=== PATIENT | male | born 1970 | race Two or more races ===

== ENCOUNTER 2020-03-13 17:11 | Emergency (ER) | payer OTHER ==
--- NOTE | 2020-03-13 18:03 | ED Physician Documentation ---
PD HPI LOWER EXT INJURY - Stated complaint Stated Complaint: RT FOOT INJURY - Chief complaint Chief Complaint: Trauma Ext - History obtained from History obtained from: Patient - History of Present Illness PD HPI LOW EXT INJURY LOCATION: Right, Toe Type of injury: Blunt / blow Where injury occurred: Home Timing - onset: How many hours ago (2) - Additional information Additional information: 49-year-old male comes to the emergency department with acute right toe pain. Patient reports that he was walking barefoot in his home and accidentally stubbed his right foot on the wooden peg of his couch.No deformity of the toe. But acutely painful at the base of the fourth and fifth phalanx. No history of previous injury. PD PAST MEDICAL HISTORY - Past Medical History Past Medical History: No Cardiovascular: None Respiratory: None Neuro: None Endocrine/Autoimmune: None GI: None : None HEENT: None Psych: None Musculoskeletal: None Derm: None - Past Surgical History Past Surgical History: No - Allergies Allergies/Adverse Reactions: Allergies Allergy/AdvReac Type Severity Reaction Status Date / Time No Known Drug Allergies Allergy Verified 03/13/20 17:15 - Social History Does the pt smoke?: No Smoking Status: Never smoker Does the pt drink ETOH?: No Does the pt have substance abuse?: No - Immunizations Immunizations are current?: Yes PD ED PE NORMAL - General General: Alert and oriented X 3, No acute distress - Cardiac Cardiac: RRR, No murmur - Respiratory Respiratory: No respiratory distress - Extremities Extremities: No deformity, Other (Tenderness at the base of the proximal fourth and fifth phalanx. No deformity. Bears nearly full weight on the right foot. 2+ DP pulse) Results - Vitals Vitals: Vital Signs - 24 hr 03/13/20 17:15 Heart Rate 68 Respiratory 16 Rate Blood Pressure 126/86 H O2 Saturation 97 Oxygen O2 Source Room air - Rads (name of study) right foot Radiology: Final report received PD MEDICAL DECISION MAKING - ED course Complexity details: reviewed results, re-evaluated patient, d/w patient ED course: 49-year-old male comes to the ED with acute right lateral foot pain after stubbing his foot on the couch this afternoon. X-ray shows a nondisplaced fracture at the distal phalanx of the right fifth digit. Patient's foot is mingo taped he will be referred to orthopedics. Departure - Departure Disposition: 01 Home, Self Care Clinical Impression: Toe fracture, right Qualifiers: Encounter type: initial encounter Toe: lesser toe Fracture type: closed Phalanx: distal Fracture alignment: nondisplaced Qualified Code(s): S92.534A - Nondisplaced fracture of distal phalanx of right lesser toe(s), initial encounter for closed fracture Condition: Stable Instructions: ED Fx Toe Closed Follow-Up: [facility] [Provider Group] Comments: Your small toe is fractured. Please continue to mingo tape your toes as shown. Wear the splint provided. Typically there is no surgical treatment for this type of fracture. Taking ibuprofen or Tylenol for pain and icing the foot will be helpful. I have made a referral for you long-term to the orthopedic doctors.
--- NOTE | 2020-03-13 18:48 | XRAY Report ---
PROCEDURE: Foot 2 View RT INDICATIONS: S/P Blunt force trauma to right foot, 5th digit, P TECHNIQUE: 2 views of the foot were acquired. COMPARISON: None. FINDINGS: BB marker adjacent to the fifth digit interphalangeal joint. Bones: Cortical step-off at the articular surface of the distal phalanx of the fifth digit. No disloc ation. No suspicious bony lesions. Soft tissues: No tibiotalar joint effusion. Achilles tendon appears normal. IMPRESSION: Nondisplaced fracture at the articular surface of the distal phalanx of the fifth digit. Reviewed by: Sheldon Herman MD on 03/13/2020 6:47 PM PDT Approved by: Sheldon Herman MD on 03/13/2020 6:47 PM PDT Station ID: [id number]
[2020-03-13 19:28] VITALS: BP 129/87
== END 2020-03-13 19:36 | disposition home or self-care (01) ==
LOC: ED 17:11
DX: S92.534A Nondisplaced fracture of distal phalanx of right lesser toe(s), initial encounter for closed fracture (principal); W22.03XA Walked into furniture, initial encounter; Y93.01 Activity, walking, marching and hiking; Y92.009 Unspecified place in unspecified non-institutional (private) residence as the place of occurrence of the external cause
CPT/HCPCS: 99281; 99283

== ENCOUNTER 2021-09-28 20:22 | Emergency (ER) | payer BC, OTHER ==
[2021-09-28] MEDS ORDERED: HYDROcod/ACET 5/325 Prepack 4 PO STA (20:35)
[2021-09-28 20:37] VITALS: BP 131/76
--- NOTE | 2021-09-28 20:37 | ED Physician Documentation ---
History of Present Illness - Stated complaint Stated Complaint: FEVER/BODY ACHES/NAUSEA/CONGESTION/HEADACHE - Chief complaint Chief Complaint: General - History obtained from History obtained from: Patient - Additonal information Additional information: Otherwise healthy 51-year-old gentleman who has been vaccinated against COVID but not boosted got sick yesterday with severe body aches, fever, joint aches, mild cough and sore throat. 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 Review of Systems Constitutional: reports: Fever, Chills, Myalgias, Fatigue Nose: reports: Rhinorrhea / runny nose (v mild) Throat: reports: Sore throat Respiratory: reports: Cough. denies: Dyspnea PD PAST MEDICAL HISTORY - Past Medical History Cardiovascular: None Respiratory: None Neuro: None Endocrine/Autoimmune: None GI: None : None HEENT: None Psych: None Musculoskeletal: None Derm: None - Past Surgical History Past Surgical History: No - Present Medications Home Medications: Ambulatory Orders Medication Instructions Recorded Confirmed HYDROcod/ACETAM 5/325 [[place] 5/325] 1 - 2 tab PO Q6H PRN #15 tablet 09/28/21 Ibuprofen [Motrin] 800 mg PO Q8H PRN #20 tablet 09/28/21 - Allergies Allergies/Adverse Reactions: Allergies Allergy/AdvReac Type Severity Reaction Status Date / Time No Known Drug Allergies Allergy Verified 09/28/21 20:37 - Social History Does the pt smoke?: No Smoking Status: Never smoker Does the pt drink ETOH?: No Does the pt have substance abuse?: No - Immunizations Immunizations are current?: Yes PD ED PE NORMAL - Vitals Vital signs reviewed: Yes (Tachycardic and febrile) - General General: Alert and oriented X 3, No acute distress, Well developed/nourished - HEENT HEENT: Pharynx benign - Neck Neck: Supple, no meningeal sign, No bony TTP - Cardiac Cardiac: RRR, No murmur - Respiratory Respiratory: No respiratory distress, Clear bilaterally - Abdomen Abdomen: Non tender - Neuro Neuro: Alert and oriented X 3, Normal speech Results - Vitals Vitals: Vital Signs - 24 hr 09/28/21 20:25 Temperature 38.7 C H Heart Rate 125 H Respiratory 16 Rate Blood Pressure 131/76 H O2 Saturation 97 Oxygen O2 Source Room air PD MEDICAL DECISION MAKING - ED course ED course: 51-year-old gentleman with kind of a classic viral syndrome. High suspicion for COVID given the current outbreak. He is tested for same and treated symptomatically. Departure - Departure Disposition: 01 Home, Self Care Clinical Impression: Viral syndrome Condition: Good Record reviewed to determine appropriate education?: Yes Instructions: ED Viral Syndrome Prescriptions: Ibuprofen [Motrin] 800 mg PO Q8H PRN #20 tablet PRN Reason: PAIN &/OR FEVER HYDROcod/ACETAM 5/325 [[place] 5/325] 1 - 2 tab PO Q6H PRN #15 tablet PRN Reason: Pain Comments: I sent your prescription electronically to [facility] in [place]. Drink plenty of fluids. You have a Covid test pending. You need to self quarantine until the result is done and negative. Do not leave your house. Do not get near anybody. The results should be done in 48 to 72 hours. We will call with a positive result, the fastest way to get a negative result for confirmation though is to go to the hospital website at [email or web address], click on the my [facility] tab and sign up for the patient portal. If any friends or family get sick and would like to have a Covid test done, but do not have signs or symptoms that would necessitate being hospitalized, there are multiple local options for Covid testing. [facility] keeps an updated list of testing and vaccination options at: [email or web address].
== END 2021-09-28 20:45 | disposition home or self-care (01) ==
LOC: ED 20:22
DX: B34.9 Viral infection, unspecified (principal); Z20.822 Contact with and (suspected) exposure to COVID-19
CPT/HCPCS: 99282; 99283

== ENCOUNTER 2023-03-08 02:25 | Emergency (ER) | payer BC ==
[2023-03-08 02:52] VITALS: BP 121/81
[2023-03-08 03:23] LABS: BASOPHILS # (AUTO) 0.1 10^3/uL (0.0-0.1); BASOPHILS % (AUTO) 1.6 %; EOSINOPHILS # (AUTO) 0.7 10^3/uL (0.0-0.7); EOSINOPHILS % (AUTO) 8.4 %; HCT - HEMATOCRIT 43.3 % (42.0-52.0); HGB - HEMOGLOBIN 14.6 g/dL (14.0-18.0); LYMPHOCYTES # (AUTO) 3.8 10^3/uL (1.5-3.5); LYMPHOCYTES % (AUTO) 48.2 %; MEAN CORPUSCULAR HGB CONC 33.7 g/dL (32.0-36.0); MEAN PLATELET VOLUME 10.3 fL (7.4-11.4); MONOCYTES # (AUTO) 0.4 10^3/uL (0.0-1.0); MONOCYTES % (AUTO) 5.4 %; NEUTROPHILS # (AUTO) 2.9 10^3/uL (1.5-6.6); NEUTROPHILS % (AUTO) 36.1 %; PLT - PLATELET COUNT 214 10^3/uL (130-450); RED BLOOD COUNT 4.42 10^6/uL (4.70-6.10); RED CELL DISTRIBUTION WIDTH 11.9 % (12.0-15.0); WHITE BLOOD COUNT 7.9 x10^3/uL (4.8-10.8)
[2023-03-08 03:29] LABS: RAPID STREP SCREEN Negative (Negative)
[2023-03-08 03:36] LABS: ALBUMIN 3.9 g/dL (3.2-5.5); ALBUMIN/GLOBULIN RATIO 1.3 (1.0-2.2); BILIRUBIN,TOTAL 0.4 mg/dL (0.2-1.0); CALCIUM 8.7 mg/dL (8.5-10.3); POTASSIUM 4.1 mmol/L (3.5-5.0)
--- NOTE | 2023-03-08 03:42 | ED Physician Documentation ---
PD HPI DYSPNEA - Stated complaint Stated Complaint: SOA - Chief complaint Chief Complaint: Resp - History obtained from History obtained from: Patient - Additional information Additional information: Patient is a 52-year-old male with no significant past medical history presenting for evaluation of feeling short of breath that woke him up from his sleep AAt 1:40 AM. Patient reports yesterday feeling like he was coming down with virus. Patient reports feeling fatigued as well as having a sore throat. He reported no fever, no cough, no chest pain. He reports having good p.o. intake. Overnight he woke up feeling as if he was having a hard time getting a full breath in which appears to be better now. He denies a history of PE or DVT, recent travel or immobilization, leg swelling or pain.No hemoptysis.He is unsure of any sick contacts.He again denies having any chest pain or discomfort.He says his symptoms are not worse with exertion. He says that his symptoms feel worse if he is laying back. Review of Systems Constitutional: denies: Fever Cardiac: denies: Chest pain / pressure Respiratory: reports: Dyspnea GI: denies: Abdominal Pain Neurologic: denies: Headache PD PAST MEDICAL HISTORY - Past Medical History Cardiovascular: None Respiratory: None Neuro: None Endocrine/Autoimmune: None GI: None : None HEENT: None Psych: None Musculoskeletal: None Derm: None - Past Surgical History Past Surgical History: No - Present Medications Home Medications: Ambulatory Orders Medication Instructions Recorded Confirmed HYDROcod/ACETAM 5/325 [[place] 5/325] 1 - 2 tab PO Q6H PRN #15 tablet 09/28/21 Ibuprofen [Motrin] 800 mg PO Q8H PRN #20 tablet 09/28/21 - Allergies Allergies/Adverse Reactions: Allergies Allergy/AdvReac Type Severity Reaction Status Date / Time No Known Drug Allergies Allergy Verified 03/08/23 02:51 - Social History Does the pt smoke?: No Smoking Status: Never smoker Does the pt drink ETOH?: No Does the pt have substance abuse?: No - Immunizations Immunizations are current?: Yes PD ED PE NORMAL - General General: Alert and oriented X 3, No acute distress, Well developed/nourished - HEENT HEENT: Atraumatic, Moist mucous membranes, Pharynx benign (No oral swelling, erythema or exudate) - Neck Neck: Supple, no meningeal sign - Cardiac Cardiac: RRR, No murmur - Respiratory Respiratory: No respiratory distress, Clear bilaterally - Abdomen Abdomen: Soft, Non tender - Derm Derm: Warm and dry - Extremities Extremities: No edema, No calf tenderness / cord - Neuro Neuro: Normal speech Results - Vitals Vitals: Vital Signs - 24 hr 03/08/23 03/08/23 02:38 04:18 Temperature 36.4 C L Heart Rate 51 L 62 Respiratory 16 18 Rate Blood Pressure 121/81 H O2 Saturation 100 97 Oxygen O2 Source Room air - EKG (time done) 0324 EKG releavant findings:: EKG personally interpreted by author of this note. Relevant findings are: Rate 59, sinus bradycardia, no STEMI, no ST depressions, QTc 402 Rate: Rate (enter#) (59) Rhythm: Sinus bradycardia Intervals: No: Prolonged QT Ischemia: No: ST elevation c/w ischemia - Labs Labs: Laboratory Tests 03/08/23 03/08/23 03/08/23 03:12 03:12 03:14 WBC 7.9 RBC 4.42 L Hgb 14.6 Hct 43.3 MCV 98.0 H MCH 33.0 H MCHC 33.7 RDW 11.9 L Plt Count 214 MPV 10.3 Neut # (Auto) 2.9 Lymph # (Auto) 3.8 H [place] # (Auto) 0.4 Eos # (Auto) 0.7 Baso # (Auto) 0.1 Absolute Nucleated RBC 0.00 Nucleated RBC % 0.0 Sodium Potassium Chloride Carbon Dioxide Anion Gap BUN Creatinine Estimated GFR (MDRD) Glucose Calcium Total Bilirubin AST ALT Alkaline Phosphatase Total Protein Albumin Globulin Albumin/Globulin Ratio Nasal Adenovirus (PCR) NOT DETECTED Nasal B. parapertussis DNA (PCR) NOT DETECTED Nasal Coronavir 229E PCR NOT DETECTED Nasal Coronavir HKU1 PCR NOT DETECTED Nasal Coronavir NL63 PCR NOT DETECTED Nasal Coronavir OC43 PCR NOT DETECTED Nasal Enterovir/Rhinovir PCR NOT DETECTED Nasal Influenza B PCR NOT DETECTED Nasal Influenza A PCR NOT DETECTED Nasal Parainfluen 1 PCR NOT DETECTED Nasal Parainfluen 2 PCR NOT DETECTED Nasal Parainfluen 3 PCR NOT DETECTED Nasal Parainfluen 4 PCR NOT DETECTED Nasal RSV (PCR) NOT DETECTED Nasal B.pertussis DNA PCR NOT DETECTED Nasal C.pneumoniae (PCR) NOT DETECTED Gene Human Metapneumo PCR NOT DETECTED Nasal M.pneumoniae (PCR) NOT DETECTED Nasal SARS-CoV-2 (PCR) NOT DETECTED Group A Strep Rapid Negative 03/08/23 03:14 WBC RBC Hgb Hct MCV MCH MCHC RDW Plt Count MPV Neut # (Auto) Lymph # (Auto) [place] # (Auto) Eos # (Auto) Baso # (Auto) Absolute Nucleated RBC Nucleated RBC % Sodium 138 Potassium 4.1 Chloride 104 Carbon Dioxide 26 Anion Gap 8.0 BUN 22 H Creatinine 1.0 Estimated GFR (MDRD) 79 L Glucose 100 Calcium 8.7 Total Bilirubin 0.4 AST 22 ALT 30 Alkaline Phosphatase 88 Total Protein 7.0 Albumin 3.9 Globulin 3.1 Albumin/Globulin Ratio 1.3 Nasal Adenovirus (PCR) Nasal B. parapertussis DNA (PCR) Nasal Coronavir 229E PCR Nasal Coronavir HKU1 PCR Nasal Coronavir NL63 PCR Nasal Coronavir OC43 PCR Nasal Enterovir/Rhinovir PCR Nasal Influenza B PCR Nasal Influenza A PCR Nasal Parainfluen 1 PCR Nasal Parainfluen 2 PCR Nasal Parainfluen 3 PCR Nasal Parainfluen 4 PCR Nasal RSV (PCR) Nasal B.pertussis DNA PCR Nasal C.pneumoniae (PCR) Gene Human Metapneumo PCR Nasal M.pneumoniae (PCR) Nasal SARS-CoV-2 (PCR) Group A Strep Rapid PD Medical Decision Making - ED course Complexity details: reviewed results, re-evaluated patient, d/w patient ED course: Patient presenting for evaluation of feeling short of air. Also reports recently feeling like he has a sore throat. His vital signs are stable. No signs of Airway swelling Deep space infection. Lung sounds are clear. No labored breathing. No clinical symptoms to suggest fluid overload. No risk factors for PE. EKG is reviewed with a normal sinus rhythm. No chest pain to suggest ACS. Strep test, screening labs with CBC and chemistries were obtained and reviewed without significant findings. Respiratory panel is pending. Chest x-ray was also reviewed by me and I see no consolidation, effusion or pneumothorax. Heart size appears normal. Patient reported feeling better in the emergency department without any specific intervention.Discussed that he could be coming down with a viral illness. Discussed need for close follow-up as well as strict return precautions with any worsening symptoms. 0414 - Patient is sleeping. States he feels better no longer feeling short of air. Departure - Departure Disposition: 01 Home, Self Care Clinical Impression: Dyspnea, Pharyngitis Condition: Stable Instructions: ED Dyspnea Shortness of Breath, ED Pharyngitis Viral Comments: The exact cause for your shortness of breath and your symptoms tonight is unclear. It could be related to a viral infection. Your chest x-ray appears clear. Your labs are reassuring. Your strep test is negative. Your respiratory swab is pending. This will check for viruses such as flu, COVID, RSV. We will notify you if it is positive for COVID. Please continue to monitor your symptoms. Stay hydrated and get plenty of rest. If you develop any new or worsening symptoms especially labored breathing, chest pain or any new concerns please return to the emergency department. Discharge Date/Time: 03/08/23 04:21
[2023-03-08 05:36] LABS: B. PARAPERTUSSIS- RESP PCR PAN NOT DETECTED; B. PERTUSSIS- RESP PCR PANEL NOT DETECTED; C. PNEUMONIAE- RESP PCR PANEL NOT DETECTED; CORONAVIRUS 229E-RESP PCR NOT DETECTED; CORONAVIRUS HKU1-RESP PCR NOT DETECTED; CORONAVIRUS NL63-RESP PCR NOT DETECTED; CORONAVIRUS OC43-RESP PCR NOT DETECTED; HUMAN METAPNEUMOVIRUS NOT DETECTED; INFLUENZA A- RESP PCR PANEL NOT DETECTED; INFLUENZA B - RESP PCR PANEL NOT DETECTED; M. PNEUMONIAE- RESP PCR PANEL NOT DETECTED; PARAINFLUENZA VIRUS 1 NOT DETECTED; PARAINFLUENZA VIRUS 2 NOT DETECTED; PARAINFLUENZA VIRUS 3 NOT DETECTED; PARAINFLUENZA VIRUS 4 NOT DETECTED; RHINOVIRUS/ENTEROVIRUS NOT DETECTED; RSV- RESP PCR PANEL NOT DETECTED; SARS-CoV-2 -RESP PCR PANEL NOT DETECTED
--- NOTE | 2023-03-08 09:05 | XRAY Report ---
PROCEDURE: Chest 1 View X-Ray INDICATIONS: SOA TECHNIQUE: One view of the chest was acquired. COMPARISON: None. FINDINGS: Surgical changes and devices: None. Lungs and pleura: No pleural effusions or pneumothorax. Lungs are clear. Mediastinum: Mediastinal contours appear normal. Heart size is normal. Bones and chest wall: No suspicious bony lesions. Overlying soft tissues appear unremarkable. IMPRESSION: No acute process. Reviewed by: Jl Ortega MD on 03/08/2023 9:03 AM PDT Approved by: Jl Ortega MD on 03/08/2023 9:03 AM PDT Station ID: [id number]
== END 2023-03-08 04:21 | disposition home or self-care (01) ==
LOC: ED 02:25
DX: R06.00 Dyspnea, unspecified (principal); J02.9 Acute pharyngitis, unspecified; Z20.822 Contact with and (suspected) exposure to COVID-19
CPT/HCPCS: 36415; 80053; 85025; 87070; 87430; 87633; 93005; 99283; 99284

== ENCOUNTER 2024-05-27 18:52 | Emergency (ER) | payer BC ==
[2024-05-27 19:00] VITALS: BP 130/90; O2SAT 98
[2024-05-27] MEDS: LIDOCAINE PATCH 4% TOP STA (20:03)
--- NOTE | 2024-05-27 20:10 | ED Physician Documentation ---
History of Present Illness - Stated complaint Stated Complaint: NECK PX - Chief complaint Chief Complaint: General - Additonal information Additional information: Patient is a 54-year-old male with no significant past medical history presents to the emergency department with right sided neck pain. He notes symptoms occurred about 2 days ago when he was sleeping on the smaller mattress as they were moving and had worsening right neck pain. Symptoms worsen with movement of his arm or his neck. Notes similar episode occurred on the other side and he was told he had nerve injury on left side of his neck. He is concerned for similar episode today. He has taken ibuprofen at home with mild improvement. No fevers chills no sore throat no nausea vomiting no photophobia associated with his pain or headaches. PD PAST MEDICAL HISTORY - Past Medical History Past Medical History: No Cardiovascular: None Respiratory: None Neuro: None Endocrine/Autoimmune: None GI: None : None HEENT: None Psych: None Musculoskeletal: None Derm: None - Past Surgical History Past Surgical History: No - Present Medications Home Medications: Ambulatory Orders Medication Instructions Recorded Confirmed Cyclobenzaprine [Flexeril] 10 mg PO TID PRN #20 tablet 05/27/24 Lidocaine Patch 5% [Lidoderm Patch] 1 patch TOP DAILY PRN #10 patch 05/27/24 Naproxen 250 mg PO BID PRN #15 tablet 05/27/24 - Allergies Allergies/Adverse Reactions: Allergies Allergy/AdvReac Type Severity Reaction Status Date / Time No Known Drug Allergies Allergy Verified 05/27/24 18:56 - Social History Does the pt smoke?: No Smoking Status: Never smoker Does the pt drink ETOH?: No Does the pt have substance abuse?: No - Immunizations Immunizations are current?: Yes - POLST Patient has POLST: No PD ED PE NORMAL - General General: Alert and oriented X 3 - HEENT HEENT: Atraumatic - Neck Neck: Supple, no meningeal sign, Other - Cardiac Cardiac: RRR, No murmur, No gallop, No rub - Respiratory Respiratory: No respiratory distress, Clear bilaterally - Free text exam Free text exam: Reproducible cervical paraspinal muscle tenderness along the right side of neck on examination patient has full flexion and extension of right shoulder intact but decreased abduction adduction on examination. Secondary to pain. Positive empty can sign as well as anterior liftoff test on exam she has full sensation intact distally and good pulses. Handgrip strength is equal bilaterally. Full range of motion of elbow intact and good supination. Results - Vitals Vitals: Vital Signs - 24 hr 05/27/24 18:56 Temperature 36.8 C Heart Rate 80 Respiratory 16 Rate Blood Pressure 130/90 H O2 Saturation 98 Oxygen O2 Source Room air PD Medical Decision Making - ED course Complexity details: reviewed old records, reviewed results ED course: Patient is a 54-year-old male presenting to the emergency department with right- sided neck pain. Symptoms have been going on for 2 days after he woke up on a small mattress as he is moving and had right sided neck pain. He denies any trauma no sore throat no headaches no photophobia associate with symptoms. He notes no significant pain with moving his neck his symptoms worsen with moving his shoulder. Vital stable on arrival. No C-spine tenderness on exam patient has full range of flexion extension of right shoulder intact but decreased abduction adduction. Positive empty can sign on exam as well as positive liftoff test. Discussed with patient we will give muscle relaxer and lidocaine patch with Toradol here in the emergency department to help with symptoms however he probably will require further outpatient imaging in the future for f tonither evaluation. Rechecked on patient he is feeling significantly better. He has a ride to go home with he was instructed to watch for any new or worsening symptoms and will follow-up in outpatient setting with his PCP. Patient instructed to watch for any photophobia headaches vision changes numbness or tingling in his extremities difficulty moving his neck that worsens fevers or sore throat. Patient understands and is agreeable with this plan Departure - Departure Disposition: 01 Home, Self Care Clinical Impression: Musculoskeletal neck pain Condition: Good Instructions: ED Neck Pain No Trauma Comments: You were seen here in the emergency department for your right-sided neck pain your workup here in the emergency department showed most likely musculoskeletal pain given no bony tenderness and no recent trauma. I have given you pain medications and anti-inflammatory medications to help with your symptoms. You need to follow-up with your PCP in outpatient setting and if pain persists you may require further imaging including MRI or CT scan. At this time I do not feel this is necessary and I recommend you trying the pain medications at home. Have sent Flexeril do not take this medication with narcotics and do not take it before driving with alcohol or while working as it will make you sleepy and this worsens the sedative effect. Return to the emergency department with any headaches photophobia which means difficulty looking at the light nausea vomiting numbness or tingling in your extremities or any other new or worsening symptoms. Forms: PCP List
[2024-05-27] MEDS: KETOROLAC 15 MG/ML VIAL IM STA (20:19)
[2024-05-27] MEDS: CYCLOBENZAPRINE 10 MG TABLET PO STA (20:23)
== END 2024-05-27 21:05 | disposition home or self-care (01) ==
LOC: ED 18:52
DX: M54.2 Cervicalgia (principal)
CPT/HCPCS: 96372; 99283; A9270